=== PATIENT | female | born 1990 | race Caucasian/White ===

== ENCOUNTER 2024-03-30 17:50 | Emergency (ER) | payer OTHER ==
[2024-03-30 17:59] VITALS: BP 138/84; PULSE 92; RESP 20; TEMP 98; BMI 21.9
[2024-03-30] MEDS ORDERED: ACETAMINOPHEN INJECTION 100 ML IVPB ONE (18:32)
[2024-03-30] MEDS ORDERED: METOCLOPRAMIDE HCL INJECTION 10 MG/2 ML VIAL ONE (18:32)
[2024-03-30] MEDS: SODIUM CHLORIDE 0.9% 500 ML INFUS.BAG IV ONE (18:47)
[2024-03-30] MEDS: METOCLOPRAMIDE HCL INJECTION 10 MG/2 ML VIAL IVPUSH ONE (18:48)
[2024-03-30] MEDS: ACETAMINOPHEN 1000 MG/100 ML BAG IVPB ONE (18:48)
[2024-03-30 18:50] LABS: BASO % 0.6 % (0-2.0); EOS % 0.7 % (0-4.5); HEMATOCRIT 39.5 % (32.4-45.2); HEMOGLOBIN 13.2 GM/dL (10.7-15.3); LYMPH % 44.1 % (8-40); MCH 30.9 pg (25.7-33.7); MCHC 33.4 g/dl (32.0-36.0); MEAN CELL VOLUME 92.7 fl (80-96); MEAN PLT VOLUME 7.7 fl (7.5-11.1); MONO % 5.1 % (3.8-10.2); NEUT % 49.5 % (42.8-82.8); PLATELET COUNT 215 10^3/uL (134-434); RBC 4.26 M/mm3 (3.60-5.2); RDW 12.9 % (11.6-15.6); WHITE BLOOD COUNT 6.9 K/mm3 (4.0-10.0)
[2024-03-30 19:20] LABS: POTASSIUM 4.2 mmol/L (3.5-5.1)
[2024-03-30 19:22] LABS: CALCIUM 9.2 mg/dL (8.5-10.1)
[2024-03-30 19:23] LABS: BLOOD UREA NITROGEN 12.9 mg/dL (7-18)
[2024-03-30 19:27] LABS: TOT PROT 7.5 g/dl (6.4-8.2)
[2024-03-30 19:43] LABS: URINE APPEARANCE CLEAR; URINE BILIRUBIN NEGATIVE (NEGATIVE); URINE COLOR YELLOW; URINE GLUCOSE (UA) 2+ (NEGATIVE); URINE KETONE NEGATIVE (NEGATIVE); URINE LEUK ESTERASE NEGATIVE (NEGATIVE); URINE NITRITE NEGATIVE (NEGATIVE); URINE PROTEIN NEGATIVE (NEGATIVE); URINE UROBILINOGEN 0.2 mg/dL (0.2-1.0)
[2024-03-30] MEDS: glipiZIDE 5 MG TABLET (FP) PO ONE (19:49)
[2024-03-30 20:37] LABS: BILIRUBIN,TOTAL 0.2 mg/dL (0.2-1)
== END 2024-03-30 22:33 | disposition home or self-care (01) ==
LOC: JER 17:50
PROC: 3E030NZ Introduction of Analgesics, Hypnotics, Sedatives into Peripheral Vein, Open Approach (ICD-10-PCS; principal; 2024-03-30)
PROC: 3E030GC Introduction of Other Therapeutic Substance into Peripheral Vein, Open Approach (ICD-10-PCS; 2024-03-30)
DX: R51.9 Headache, unspecified (principal); R20.2 Paresthesia of skin; R29.898 Other symptoms and signs involving the musculoskeletal system; R53.83 Other fatigue; R53.1 Weakness
CPT/HCPCS: 36415; 70450-TC; 80053; 81003; 84703; 85025; 87086; 99284-25; J0131

== ENCOUNTER 2024-05-26 08:25 | Emergency (ER) | payer OTHER ==
[2024-05-26 08:50] VITALS: BP 115/79; PULSE 93; RESP 20; TEMP 97.7; BMI 22.7
[2024-05-26 10:16] LABS: BASO % 0.6 % (0-2.0); EOS % 0.9 % (0-4.5); HEMATOCRIT 34.8 % (32.4-45.2); HEMOGLOBIN 11.9 GM/dL (10.7-15.3); LYMPH % 40.7 % (8-40); MCH 31.7 pg (25.7-33.7); MCHC 34.2 g/dl (32.0-36.0); MEAN CELL VOLUME 92.5 fl (80-96); MEAN PLT VOLUME 7.8 fl (7.5-11.1); MONO % 5.8 % (3.8-10.2); PLATELET COUNT 185 10^3/uL (134-434); RBC 3.76 M/mm3 (3.60-5.2); RDW 12.7 % (11.6-15.6); WHITE BLOOD COUNT 6.3 K/mm3 (4.0-10.0)
[2024-05-26 10:30] LABS: POTASSIUM 4.1 mmol/L (3.5-5.1)
[2024-05-26 10:34] LABS: ALBUMIN 3.9 g/dl (3.4-5.0); BLOOD UREA NITROGEN 8.5 mg/dL (7-18)
[2024-05-26 10:37] LABS: CREATININE 0.8 mg/dL (0.55-1.3)
[2024-05-26 10:39] LABS: BILIRUBIN,TOTAL 0.5 mg/dL (0.2-1); TOT PROT 6.8 g/dl (6.4-8.2)
[2024-05-26 10:42] LABS: ACTIVATED PTT 27.2 SECONDS (25.2-36.5); INR 0.89 (0.83-1.09); PROTHROMBIN TIME (PATIENT) 10.1 SEC (9.7-13.0)
== END 2024-05-26 12:22 | disposition home or self-care (01) ==
LOC: JER 08:25
DX: R07.89 Other chest pain (principal); R00.2 Palpitations
CPT/HCPCS: 36415; 71045-TC-FY; 80053; 84439; 84443; 84484; 84703; 85025; 85610; 85730; 93005; 93010; 99285-25